=== PATIENT | male | born 1955 | race Caucasian/White ===

== ENCOUNTER 2019-10-01 14:19 | Emergency (ER) | payer MEDICARE, SELFPAY ==
[2019-10-01 14:20] VITALS: BP 154/89; PULSE 79; RESP 19; TEMP 37.1; O2SAT 100; BMI 23.3
--- NOTE | 2019-10-01 14:37 | XR_ITS ---
PROCEDURE: XR CHEST 2V CLINICAL HISTORY: cough Cough, smoker COMPARISON: No exams were available for comparison FINDINGS: Prior median sternotomy. Normal heart size. Prior CABG Hyperinflation suggesting COPD. No lobar consolidation or collapse. There is a focal area of increased density anterior to the T9 vertebral body and could be due to summation artifact from overlapping vessels and may be confirmed with follow-up. Degenerative spine IMPRESSION: COPD. No definite acute finding. Possible summation artifact anterior to T9 Dictated by: Shola Dhaliwal MD 10/01/2019 15:20 Electronically signed by Shola Dhaliwal MD in [place] 10/01/2019 15:20
--- NOTE | 2019-10-01 14:50 | HMH.EDUTC ---
[facility] – [place] Disposition Clinical Impression: Anxiety Disposition: Home, Self-Care Condition on Discharge: Good Instructions: DI for Anxiety -- Adult, DI for Shortness of Breath, How to Manage Shortness of Breath Additional Instructions: Only use inhaler as needed as prescribed for shortness of breath *Take medication as prescribed, this medication may make you drowsy, do not drive while taking this medication Return if needed Straight to ER if any life threatening symptoms , worsening of shortness of breath, or chest pain Follow up with family doctor if no improvement or any worsening of symptoms and further treatment if needed Prescriptions: hydrOXYzine pamoate [Vistaril] 25 mg PO BID PRN #20 cap PRN Reason: Anxiety Transmission Status: Pending to [id number] Referrals: Provider,Referral, [Primary Care Provider] - Medical Decision Making - Rafa Inquiry Pt receiving controlled substance: No Rafa was queried for this patient: No Vital Signs: 10/01/19 14:20 Temperature 98.7 F Temperature Source Oral Pulse Rate [Radial] 79 Respiratory Rate 19 Blood Pressure [Right Arm] 154/89 H Blood Pressure Mean [Right Arm] 110 Blood Pressure Source [Right Arm] Automatic Cuff Blood Pressure Position [Right Arm] Sitting 02 Sat by Pulse Oximetry 100 Oxygen Delivery Method Room Air - Radiology Data #1 Image(s): Chest Image Reviewed: Yes I reviewed the patient's radiology image, Yes I have reviewed radiologist's interpretation COPD. No definite acute finding. Possible summation artifact anterior to T9 COPD, - Physician Consults Physician Consulted: Kesha Noble Time: 14:55 Reason -: Other Comment/Response: Patient discussed with Kesha Noble [facility] and agreed Vistaril 12.5mg bid x 1 week until patient can see family doctor or behavioral health in his hometown for further treatment - Reevaluation(s) Time: 15:42 Reevaluation #1: Patient states that he is feeling much better in [facility] no longer feeling SOA since arrival Medical Decision Narrative: Patient states that he is [place] and they have been having a lot of COVID19 States that he got his test results back yesterday and they was negative and he has been having some mild anxiety State that he was seen by family doctor last week and had a work up and was dx with mild COPD and was given an inhaler and he has been using it every 4 hours Patient educated that he should use the inhaler PRN as prescribed and not use it when he was not having SOA reports after he uses it he does feel nervous. Patient denies chest pain, denies pain in his arm or neck [facility] [place] HPI - General Stated complaint: SOA Time Seen by Provider: 10/01/19 14:50 Mode of Arrival: Ambulatory Source of Information: Patient Limitations: No Limitations Description of Symptoms (Recalled from Triage Doc. by RN): Shortness of breath HEENT Symptoms (Recalled from RN notes): No Resp Symptoms (Recalled from RN notes): Yes Skin Symptoms (Recalled from RN notes): No MS Symptoms (Recalled from RN notes): No Functional Status (Recalled from RN notes): wnl - History of Present Illness Provider Complaint: Patient state that he saw family doctor last week for same symptoms States that he has been having periods of feeling short of breath on and off for a couple of weeks States that last week he was started on albuteral inhaler and was dx with mild COPD States that he was driving in yesterday and felt like he was having some anxiety and made his shortness of breath a little worse. States that today was still having some anxiety and feeling Shortness of breath so he came in to see if he could get something to help with anxiety until he got back home to [place]. - Related Data Previous Rx's Medication Instructions Recorded hydrOXYzine pamoate [Vistaril] 25 mg PO BID PRN #20 cap 10/01/19 Allergies Allergy/AdvReac Type Severity Reaction Status Date / Time No
[2019-10-01 15:49] VITALS: BP 154/89; PULSE 79; RESP 19; TEMP 37.1; O2SAT 100
== END 2019-10-01 15:49 | disposition home or self-care (01) ==
PROVIDERS: Emergency Provider Nurse Practitioner
DX: F41.8 Other specified anxiety disorders (principal); J44.9 Chronic obstructive pulmonary disease, unspecified
CPT/HCPCS: G0463; 71046; 99201